=== PATIENT | male | born 1970 | race Caucasian/White ===

== ENCOUNTER 2023-10-20 09:07 | Outpatient (CLI) | payer OTHER ==
[2023-10-20 10:51] LABS: Hematocrit 36.5 % (38.8-50.0); Hemoglobin 12.1 g/dL (13.5-17.5); Mean Corpuscular HGB CONC 33.2 g/dL (32.0-36.0); Mean Corpuscular Volume 90.6 fL (81.2-95.1); Mean Platelet Volume 9.9 fL (7.4-10.4); Platelet Count 328 10x3/uL (150-450); Red Blood Cell (RBC) Count 4.03 10x6/uL (4.32-5.72); White Blood Cell (WBC) Count 12.8 10x3/uL (3.5-10.5)
[2023-10-20 10:55] LABS: INR-International Normal Ratio 1.2; Prothrombin Time 13.2 sec (9.5-12.1)
[2023-10-20 11:06] LABS: ALT (SGPT) 37 U/L (8-55); AST (SGOT) 34 U/L (5-34); Albumin 3.3 g/dL (3.5-5.0); Alkaline Phosphatase 391 U/L (40-110); Anion Gap 15 mmol/L (10-20); BUN (Urea Nitrogen) 15 mg/dL (8.4-25.7); Bilirubin, Direct 0.5 mg/dL (0.1-0.3); Bilirubin, Total 0.8 mg/dL (0.2-1.2); Calc. Creatinine Clearance 0 mL/min (70-130); Calcium 9.4 mg/dL (7.8-10.44); Carbon Dioxide 26 mmol/L (22-29); Chloride 98 mmol/L (98-107); Estimated GFR 106; Glucose 110 mg/dL (70-105); Potassium 4.4 mmol/L (3.5-5.1); Protein, Total 7.4 g/dL (6.0-8.3); Sodium 135 mmol/L (136-145)
== END 2023-10-20 09:08 | disposition home or self-care (01) ==
LOC: CSHLAB 09:07
PROVIDERS: ATTEND Surgery
DX: Z01.818 Encounter for other preprocedural examination (principal); C25.9 Malignant neoplasm of pancreas, unspecified
CPT/HCPCS: 80048; 80076; 85027; 85610; 85730; 93005; 93010

== ENCOUNTER 2023-10-23 05:27 | Day surgery (SDC) | payer OTHER ==
[2023-10-20 10:46] VITALS: BMI 28.5
[2023-10-23] MEDS ORDERED: EPINEPHrine 1 MG/ML VIAL ONE (06:09)
[2023-10-23] MEDS ORDERED: Bupivacaine PF 0.5% 30 ML VIAL ONE (06:10)
[2023-10-23] MEDS ORDERED: CEFAZOLIN 2 GM VIAL ONE (06:10)
[2023-10-23] MEDS ORDERED: PROPOFOL 40 ML ONE (06:42)
[2023-10-23] MEDS ORDERED: Dexamethasone 4 mg/ml Vial ONE (06:42)
[2023-10-23] MEDS ORDERED: Lidocaine 1% PF 5 ML VIAL ONE (06:42)
[2023-10-23] MEDS ORDERED: Ondansetron PF 4 MG/2 ML Vial ONE (06:42)
[2023-10-23] MEDS ORDERED: fentaNYL 50 mcg/mL 1 mL Vial ONE (06:42)
[2023-10-23] MEDS ORDERED: HYDROcodone/Acetaminophen 5/325 mg Tablet PO PRN (07:47)
== END 2023-10-23 08:30 | disposition home or self-care (01) ==
LOC: CSHSDC 05:27
PROVIDERS: ATTEND Surgery
PROC: 0JH60WZ Insertion of Totally Implantable Vascular Access Device into Chest Subcutaneous Tissue and Fascia, Open Approach (ICD-10-PCS; principal; 2023-10-23)
DX: C25.9 Malignant neoplasm of pancreas, unspecified (principal); C26.1 Malignant neoplasm of spleen; C78.7 Secondary malignant neoplasm of liver and intrahepatic bile duct
CPT/HCPCS: 71045; A6258; C1788; J0171; J0665; J1100; J1642; J2405; J2704; J3010